=== PATIENT | male | born 1990 | race Caucasian/White ===

== ENCOUNTER 2019-09-07 11:54 | Emergency (ER) | payer OTHER ==
--- NOTE | 2019-09-07 12:45 | ED ---
Chest Pain HPI - General Source: patient, RN notes reviewed Mode of arrival: ambulatory Limitations: no limitations <Maximilian Iraheta - Last Filed: 09/07/19 12:43> <Otto Conner - Last Filed: 09/07/19 15:02> - General Chief Complaint: Chest Pain Stated Complaint: chest pressure/left arm weakness Time Seen by Provider: 09/07/19 12:43 - History of Present Illness Initial Comments: This is a 29-year-old male seen in triage with chief complaint of intermittent chest pain or left side. He states that he's had some palpitations, pain with inspiration. Patient states that he's had a slight cough no prior cardiac disease. Denies any trauma. Denies abdominal pain. (Maximilian Iraheta) 29-year-old male presents with intermittent left-sided chest pain. Pain is quite mild, described as a 1 cm area of pressure in the left lateral chest. Feels like someone is pushing against his rib cage. He also reports palpitations over the past 24 hours. No history of cardiac disease. Patient admits to smoking marijuana, no other illicit drugs. No abdominal pain. No vomiting. No diarrhea. No fever (Otto Conner) - Related Data Allergies Allergy/AdvReac Type Severity Reaction Status Date / Time No Known Allergies Allergy Verified 09/07/19 12:40 Review of Systems ROS Other: All systems not noted in ROS Statement are negative. <Maximilian Iraheta - Last Filed: 09/07/19 12:43> ROS Other: All systems not noted in ROS Statement are negative. <Otto Conner - Last Filed: 09/07/19 15:02> ROS Statement: Those systems with pertinent positive or pertinent negative responses have been documented in the HPI. EKG Findings - EKG Comments: EKG Findings:: EKG: Normal sinus rhythm, sinus arrhythmia, right atrial enlargement, no ST segment elevation, rate of 88, CA interval 148, QRS duration 86, QTC 418. <Otto Conner - Last Filed: 09/07/19 15:02> Past Medical History Past Medical History: No Reported History History of Any Multi-Drug Resistant Organisms: None Reported Past Surgical History: No Surgical Hx Reported Past Psychological History: ADD/ADHD Smoking Status: Former smoker Past Alcohol Use History: Occasional Past Drug Use History: Marijuana <DedMaximilian rodrigues M - Last Filed: 09/07/19 12:43> General Exam Limitations: no limitations <AlysonMaximilian rodrigues - Last Filed: 09/07/19 12:43> General appearance: alert, in no apparent distress Head exam: Present: atraumatic, normocephalic Eye exam: Present: normal appearance, PERRL ENT exam: Present: normal exam, mucous membranes moist Neck exam: Present: normal inspection. Absent: tenderness, meningismus Respiratory exam: Present: normal lung sounds bilaterally, chest wall tenderness (Left lateral). Absent: respiratory distress, wheezes Cardiovascular Exam: Present: regular rate, normal rhythm. Absent: bradycardia, tachycardia GI/Abdominal exam: Present: soft. Absent: distended, tenderness Extremities exam: Present: normal inspection, normal capillary refill. Absent: pedal edema, calf tenderness Neurological exam: Present: alert, oriented X3, CN II-XII intact. Absent: motor sensory deficit Psychiatric exam: Present: normal affect, normal mood Skin exam: Present: warm, dry, intact. Absent: cyanosis, diaphoretic <Otto Conner - Last Filed: 09/07/19 15:02> Course <Otto Conner - Last Filed: 09/07/19 15:02> Vital Signs 09/07/19 09/07/19 12:36 13:22 Temperature 98.1 F Pulse Rate 82 76 Respiratory 16 18 Rate Blood Pressure 129/70 143/92 O2 Sat by Pulse 98 98 Oximetry - Reevaluation(s) Reevaluation #1: 09/07/19 15:00 Patient resting comfortably, no chest pain at the time of reevaluation. (Otto Conner) Chest Pain [facility] <Otto Conner - Last Filed: 09/07/19 15:02> - MDM 29-year-old male with left-sided chest pain. Pain is on the lateral chest wall, reproducible. No central radiating chest pain. Patient reports dyspnea, EKG is obtained, negative for ST segment elevation. Chest x-ray negative for focal pneumonia, no pneumothorax. He has normal CBC, normal CMP, negative d-dimer, negative troponin. Troponin reassuring as patient's symptoms 7 present for approximately 24 hours. He is offered observation for chest pain rule out and echo. Prefers outpatient follow-up. He will follow-up with his primary care physician regarding further evaluation of this chest pain. (Otto Conner) Disposition <Maximilian Iraheta - Last Filed: 09/07/19 12:43> Is patient prescribed a controlled substance at d/c from ED?: No Time of Disposition: 15:02 <Otto Conner - Last Filed: 09/07/19 15:02> Clinical Impression: Chest pain Disposition: HOME SELF-CARE Condition: Good Instructions (If sedation given, give patient instructions): Chest Pain (ED) Referrals: Maximilian Reyes DO [Primary Care Provider] - 1-2 days
--- NOTE | 2019-09-07 13:15 | XR ---
EXAMINATION TYPE: XR chest 2V DATE OF EXAM: 09/07/2019 COMPARISON: None INDICATION: Pain, heart palpitations TECHNIQUE: Frontal and lateral views of the chest are obtained. FINDINGS: The heart size is normal. The pulmonary vasculature is normal. The lungs are clear. IMPRESSION: 1. No acute pulmonary process.
[2019-09-07 13:23] VITALS: RESP 18
[2019-09-07 13:48] LABS: Basophils # (A) 0.1 k/uL (0-0.2); Basophils % (A) 1 %; Eosinophils # (A) 0.1 k/uL (0-0.7); Eosinophils % (A) 1 %; HCT 47.9 % (39.0-53.0); HGB 16.5 gm/dL (13.0-17.5); Lymphocytes # (A) 1.2 k/uL (1.0-4.8); Lymphocytes % (A) 22 %; MCH 29.2 pg (25.0-35.0); MCHC 34.5 g/dL (31.0-37.0); MCV 84.6 fL (80.0-100.0); Monocytes # (A) 0.4 k/uL (0-1.0); Monocytes % (A) 7 %; Neutrophils # (A) 3.6 k/uL (1.3-7.7); Neutrophils % (A) 67 %; Platelet Count 197 k/uL (150-450); RBC 5.66 m/uL (4.30-5.90); RDW 12.3 % (11.5-15.5); WBC 5.4 k/uL (3.8-10.6)
[2019-09-07 13:53] LABS: ALT 34 U/L (4-49); AST 26 U/L (17-59); African American GFR (CKD) >90 (>60 ml/min/1.73 sqM); Albumin 5.1 g/dL (3.5-5.0); Alkaline Phosphatase 43 U/L (38-126); Anion Gap 11 mmol/L; Blood Urea Nitrogen 13 mg/dL (9-20); Calcium 10.1 mg/dL (8.4-10.2); Carbon Dioxide 26 mmol/L (22-30); Chloride 104 mmol/L (98-107); Glucose 100 mg/dL (74-99); Non-African American GFR(CKD) >90 (>60 ml/min/1.73 sqM); Potassium 4.2 mmol/L (3.5-5.1); Sodium 141 mmol/L (137-145); Total Bilirubin 1.2 mg/dL (0.2-1.3); Total Protein 7.9 g/dL (6.3-8.2)
[2019-09-07 14:10] LABS: Partial Thromboplastin Time 26.9 sec (22.0-30.0); Prothrombin Time 10.9 sec (9.0-12.0)
[2019-09-07 14:31] LABS: D-Dimer <0.17 mg/L FEU (<0.60)
[2019-09-07 15:41] VITALS: BP 119/79; PULSE 78; TEMP 98.3
== END 2019-09-07 15:40 | disposition home or self-care (01) ==
LOC: EC 11:54
DX: R07.1 Chest pain on breathing (principal); R00.2 Palpitations; R53.1 Weakness; R06.00 Dyspnea, unspecified; Z87.891 Personal history of nicotine dependence
CPT/HCPCS: 36415; 71046; 80053; 83690; 83735; 84484; 85025; 85379; 85610; 85730; 93005; 99284

== ENCOUNTER → 2020-03-28 | Outpatient (CLI) | payer BC, OTHER | LOC: LABWHC1 12:50 | PROVIDERS: ATTEND Family Medicine | DX: Z20.828 Contact with and (suspected) exposure to other viral communicable diseases (principal) | CPT/HCPCS: U0003; C9803 ==

== ENCOUNTER → 2020-06-29 | Outpatient (CLI) | payer BC | END | disposition home or self-care (01) | LOC: LABWHC1 10:36 | PROVIDERS: ATTEND Family Medicine | DX: J02.9 Acute pharyngitis, unspecified (principal); Z20.828 Contact with and (suspected) exposure to other viral communicable diseases | CPT/HCPCS: U0003; C9803 ==

== ENCOUNTER → 2020-07-13 | Outpatient (CLI) | payer BC | END | disposition home or self-care (01) | LOC: LABWHC1 14:00 | PROVIDERS: ATTEND Family Medicine | DX: Z20.828 Contact with and (suspected) exposure to other viral communicable diseases (principal) | CPT/HCPCS: U0003; C9803 ==